=== PATIENT | female | born 1980 | race African-American/Black ===

== ENCOUNTER 2016-08-06 17:23 | Emergency (ER) | payer MEDICAID | END 2016-08-07 01:08 | disposition home or self-care (01) | LOC: D.ER 17:23 | DX: R07.9 Chest pain, unspecified (principal); F17.200 Nicotine dependence, unspecified, uncomplicated ==

== ENCOUNTER 2018-11-02 05:20 | Day surgery (SDC) | payer MEDICAID ==
[2018-10-30 11:29] LABS: HEMATOCRIT 34.8 % (36.0-48.0); HEMOGLOBIN 11.2 g/dL (12-16); MCH 24.8 pg (26.0-34.0); MCHC 32.2 g/dL (31.0-37.0); MCV 77.2 fL (80.0-100.0); MEAN PLATELET VOLUME 8.7 fL (7.4-10.4); PLATELET COUNT 277 10x3/uL (130-400); RBC 4.51 10x6/uL (4.00-5.40); RDW 15.5 % (11.5-14.5); WBC 2.8 10x3/uL (4.8-10.8)
[2018-10-30 11:46] LABS: CALC OSMOLALITY 273 mosm/kg (275-300); CALCIUM 8.9 mg/dL (8.5-10.1); CARBON DIOXIDE 24.5 mmol/L (21.0-32.0); CHLORIDE - SERUM 103 mmol/L (98-107); CREATININE - SERUM 0.7 mg/dL (0.6-1.3); GLUCOSE 76 mg/dL (74-106); POTASSIUM - SERUM 3.4 mmol/L (3.5-5.1); SODIUM 138 mmol/L (136-145); UREA NITROGEN 11 mg/dL (7-18); eGFR NON AFRICAN AMERICAN > 90 mL/min (90-120)
[2018-10-30 12:03] LABS: EOSINOPHILS 2 % (0-7); LYMPHOCYTES 47 % (15-50); MONOCYTES 3 % (2-11); NEUTROPHILS 48 % (40-80); PLATELET ESTIMATE NORMAL
[~2018-11-02] VITALS: Ht 152.4 cm; Wt 80.5 kg
[2018-11-02] VITALS (9 sets, daily range): BP systolic 116–135; BP diastolic 72–87; Ht 152.4 cm; Wt 80.5 kg
[2018-11-02 06:41] LABS: HCG URINE NEGATIVE (NEGATIVE)
--- NOTE | 2018-11-02 14:15 | NUR ---
REC'D PT BACK FROM RECOVERY POST OP. PT AA&O X 4. CURRENTLY RATES PAIN /. REQUEST SOMETHING WARM TO DRINK. HOT TEA TO BE SERVED. PT HAS A PIV TO RT HAND W/20 GUAGE CATH. CURRENT FLUID LR W/APPROX 700ML REMAINING PLACED ON PUMP TO INFUSE AT 125ML/HR. SITE WNL. 3 LABP INCISION TO ABD NOTED TO BE C/D/I W/DERMABOND. GATES CATH IN PLACE DRAINING. APPROX 200ML NOTED IN BAG. SCD WRAPS IN PLACE BILATERALLY. CONNECTED TO PUMP. PUMP IS N AND FUNCTIONING. POST OP VITALS STARTED. HOT TEA SERVED. PT ASSISTED W/REPOSITIONING UP IN BED. DENIES NEEDS AT THIS TIME. BED LOW, SIDE RAILS UP X 2. CALL LIGHT AT PT'S SIDE.
--- NOTE | 2018-11-02 14:30 | NUR ---
THIS RN TO BEDSIDE FOR ROUNDING. PT AA&O X4. PAIN AND NEEDS ASSESSED. PT REPORTS PAIN REMAINS 3/. REQUESTS SOMETHING TO EAT. SANDWICH TRAY SERVED. VITAL STABLE. BED LOW, SIDE RAILS UP X 2. CALL LIGHT AND PHONE AT PT'S SIDE.
--- NOTE | 2018-11-02 15:00 | NUR ---
ROUNDS MADE. PT LYING AWAKE IN BED. REPORTS PAIN IS GETTING WORSE. PAIN MEDICATION OFFERED. PT ACCEPTS. WILL MEDICATE. PT ALSO REQUESTING ADDITIONAL WARM TEA TO CRINK.
--- NOTE | 2018-11-02 15:18 | NUR ---
PT MEDICATED W/PERCOCET 5/325MG 2 TABS. WARM TEA SERVED. PT DENIES FURTHER NEEDS AT THIS TIME.
--- NOTE | 2018-11-02 15:24 | OP ---
PATIENT NAME: BAHMAN GUO MEDICAL RECORD: [id number] :[birth year] LOCATION:[facility]1218 ADMISSION DATE: SURGEON: MORENO BROCK MD DATE OF OPERATION: 11/02/2018 PREOPERATIVE DIAGNOSES: 1. Fibroid uterus. 2. Pelvic pain. POSTOPERATIVE DIAGNOSES: 1. Fibroid uterus. 2. Pelvic pain. 3. Left ovarian mass. PROCEDURES: 1. Diagnostic laparoscopy. 2. Laparoscopic subtotal hysterectomy with minilaparotomy. 3. Right total salpingectomy. 4. Left salpingo-oophorectomy. SURGEON: Moreno Brock MD SWITCH BOX INSTALLER: Shyanne Salazar ANESTHESIOLOGIST: Babar Nguyen MD ANESTHETIC: General. FINDINGS: Uterus was enlarged with irregular contour, consistent with fibroid uterus. Both tubes were interrupted bilaterally. Left ovary with multilobulated cystic mass visualized and the abdominal anatomy was unremarkable. SPECIMENS REMOVED: Bilateral tubes, left ovary, and uterus without cervix. SPECIMEN DISPOSITION: All specimens to pathology. ESTIMATED BLOOD LOSS: Less than or equal to 100 cc. URINE OUTPUT: 450 cc of clear urine. FLUIDS: 1500 cc of lactated Ringer's. DRAINS: Szymanski to gravity, discontinued on women's. COMPLICATIONS: None. INDICATIONS: The patient is a 37-year-old multiparous female with history of fibroid uterus. The patient has had irregular and painful periods that have negatively impacted her quality of life. The patient was considered for subtotal hysterectomy and any indicated procedure. DESCRIPTION OF PROCEDURE: After informed consent was assured, the patient was taken to the operating room, where anesthetic was obtained. The patient was found on the table and prepped and draped. An incision was made at the OPERATIVE REPORT [id number] BAHMAN GUO umbilicus to accommodate a 5-mm trocar, which was inserted and pneumoperitoneum was developed. Accessory ports were now placed in right and left lower quadrants. Through the left lower quadrant port, a grasper was inserted and the right tube was elevated using a Thunderbeat coagulation cutter. Dissection was carried out underneath the right tube and it was removed from its attachment to the adnexa. The tube was removed from the right lower quadrant port. Dissection was now begun over the utero-ovarian ligament and round ligament. The anterior leaf of broad ligament was opened and dissection of the bladder flap was completed to the midline from the right. The posterior leaf was opened. The vessels of the right side were skeletonized, compressed, coagulated, and . Attention was now directed to the left side. Decision was made to remove the left adnexa due to the large cystic mass on the ovary. The ovary was elevated and the infundibulopelvic ligament was compressed, coagulated, and . This dissection was carried out underneath the left tube and ovary across the round ligament and down the anterior leaf of the broad ligament. The bladder flap was now completely developed. The posterior leaf was now opened. Vessels on the left side were skeletonized, compressed, coagulated, and . The dissection of the uterus from the cervix begins on the left and concludes on the right. A minilaparotomy incision was now made over the old Pfannenstiel scar. This was carried down to the underlying layer of the fascia, which was opened in the midline and extended laterally. Using a long Allis, the cystic mass and left ovary were removed initially and then the uterus without the cervix. Fascial incision was closed with Vicryl and pneumoperitoneum was reestablished. Irrigation of the pelvis revealed adequate hemostasis. All irrigant was removed as the accessory trocars were removed under direct visualization. Primary trocars were removed after release of the pneumoperitoneum. All skin sites were closed with subcuticular stitch and Dermabond was applied. Sponge, lap, and needle counts were correct times 2. TRANSINT:[id number] Voice Confirmation ID: [id number] DOCUMENT ID: [id number] MORENO BROCK MD at 1524 CC: [id number] DICTATION DATE: 11/02/18 1319 PLASTICS SPREADING MACHINE OPERATOR: 11/02/18 1449 [facility] [address] [place] [address]
--- NOTE | 2018-11-02 15:29 | NUR ---
NEURONTIN 300MG PO GIVEN PER MD ORDERS. PT DENIES NEEDS AT PRESENT.
--- NOTE | 2018-11-02 16:00 | NUR ---
ROUNDS MADE FOR PAIN REASSESSMENT. PT REPORTS PAIN IS NOW 3/10. DENIES NEEDS AT THIS TIME. BED LOW, SIDE RAILS UP X 2. FAMILY AT BEDSIDE.
--- NOTE | 2018-11-02 17:00 | NUR ---
ROUNDS MADE. PAIN AND NEEDS ASSESSED. PT REPORTS PAIN 07/19. DENIES NEEDS AT PRESENT.
--- NOTE | 2018-11-02 18:15 | NUR ---
ROUNDS MADE FOR I&O COLLECTION. PUMPS CLEARED AND GATES EMPTIED AT THIS TIME. APPROX 530 IV INTAKE NOTED AND 15OOML EMPTIED FROM GATES. PT DENIES NEEDS AT PRESENT. RATES PAIN 3/10.
--- NOTE | 2018-11-02 19:00 | NUR ---
REPORT GIVEN TO Neelima PERES RN
--- NOTE | 2018-11-02 19:45 | NUR ---
PM ROUNDS MADE, PT VISITING WITH SON, INFORMED PT THAT I WILL BE BACK SHORTLY TO DO ASSESSMENT, PT VERBALIZES UNDERSTANDING, DENIES NEEDS AT THIS TIME
--- NOTE | 2018-11-02 20:00 | NUR ---
ASSESSMENT PER FLOW SHEET, VS OBTAINED PER LENKA ALCOCER, RN, IV IN LEFT HAND INTACT WITH NO REDNESS OR EDEMA INFUSING LR AT 125 ML/HR, UMB INC, LOWER LEFT QUAD INC, AND SMALL BIKINI INC ALL WITH DERMABOND CDI WITH NO DRAINAGE NOTED, FRESH ICE PACK TO ABD, NO VAG BLEEDING NOTED, PT REPORTS FLATUS, GATES CATH INTACT DRAINING DARK YELLOW URINE, ENC PT TO DRINK PLENY OF H20, PT REPORTS 07/19, SCD'S ON AND WORKING PROPERLY, BLANKET PROVIDED TO SON, PT DENIES FURTHER NEEDS
--- NOTE | 2018-11-02 20:16 | NUR ---
D5LR HUNG PER MD ORDERS, SEE EMAR
--- NOTE | 2018-11-02 21:20 | NUR ---
PT VISITING WITH FAMILY, TANVI JACOBO PROVIDED, PT DENIES FURTHER NEEDS
--- NOTE | 2018-11-02 22:15 | NUR ---
PT RESTING WITH EYES CLOSED, AROUSES TO SOFT VERBAL STIMULATION, ADM 2100 MEDS PER MD ORDERS, SEE EMAR, PT DENIES NEEDS
[2018-11-03 00:26] VITALS: BP 121/76
--- NOTE | 2018-11-03 00:26 | NUR ---
PT AWAKE, VS OBTAINED, ADM TORADOL AND PAIN MED PER ORDERS, SEE EMAR, FRESH ICE PACK TO ABD, PT REQUESTED AND SERVED FRESH H20, SCD'S CONTINUE AND WORKING PROPERLY, PT DENIES FURTHER NEEDS
--- NOTE | 2018-11-03 01:00 | NUR ---
PT RESTING WITH EYES CLOSED, RESP QUIET, NO DISTRESS NOTED, LEFT UNDISTURBED AT THIS TIME
--- NOTE | 2018-11-03 02:42 | NUR ---
PT RESTING WITH EYES CLOSED, RESP QUIET, NO DISTRESS NOTED, LEFT UNDISTURBED AT THIS TIME, S/O ASLEEP AT BEDSIDE
[2018-11-03 04:30] VITALS: BP 109/74
--- NOTE | 2018-11-03 04:30 | NUR ---
PT RESTING WITH EYES CLOSED, AROUSES TO SOFT VERBAL STIMULATION, VS OBTAINED, ADM PAIN MED PER MD ORDERS, SEE EMAR, I&O'S COLLECTED, SCD'S CONTINUE ON AND WORKING PROPERLY, S/O AT BEDSIDE
--- NOTE | 2018-11-03 07:00 | NUR ---
SHIFT REPORT TO DAY SHIFT
--- NOTE | 2018-11-03 07:15 | NUR ---
dr. morse on unit for am rounds.
--- NOTE | 2018-11-03 07:40 | NUR ---
am assessment completed.
[2018-11-03 07:44] VITALS: BP 102/60
--- NOTE | 2018-11-03 10:30 | NUR ---
navarro cath dc'd with 700 ml's light yellow urine out. pericare done with warm wet washcloths. chux changed. pt now rating pain as 3/10 to incisional site/abd cramping. no active bright red vag bleeding noted. new peripad placed. fresh ice water served. srup x2, call light and phone within reach.
--- NOTE | 2018-11-03 11:00 | NUR ---
dr. morse on unit with verbal discharge order received.
--- NOTE | 2018-11-03 14:00 | NUR ---
room check, pt is sleeping with covers pulled all the way over face, resp even and unlabored, visible, 16. lights are out in room, pt not disturbed.
--- NOTE | 2018-11-03 15:00 | NUR ---
pt up to br, voids 200 ml's into [place] hat.
--- NOTE | 2018-11-03 15:14 | NUR ---
pt calls out operations research manager light and requests another ice pack and some more pain medication. see emar. discharge planning discussed with pt. pt agrees.
[2018-11-03] MEDS ORDERED: NEURONTIN 300300 MG PO (15:25)
[2018-11-03] MEDS ORDERED: MOBIC7.5 MG PO (15:26)
[2018-11-03] MEDS ORDERED: PERCOCET 7.5/321 TAB PO (15:26)
--- NOTE | 2018-11-03 15:45 | NUR ---
iv dc'd with cath intact. pt autumn well.
--- NOTE | 2018-11-03 15:45 | NUR ---
discharge instructions explained to pt, prescriptions given. copies of d/c instructions provided to pt.
--- NOTE | 2018-11-03 16:15 | NUR ---
pt taken out by wheelchair, in stable condition, by norma barahona rn with sig other at her side.
== END 2018-11-03 16:15 | disposition home or self-care (01) ==
LOC: D.OPS 05:20 → D.PAN 07:30 → D.OPS 07:30 → D.PAN 10:00 → D.WS 14:10 → D.OPS 11-03 16:15
PROVIDERS: ATTEND Obstetrics & Gynecology
DX: D25.2 Subserosal leiomyoma of uterus (principal); N83.12 Corpus luteum cyst of left ovary; Z01.812 Encounter for preprocedural laboratory examination